=== PATIENT | female | born 1975 | race Hispanic/Latino ===

== ENCOUNTER → 2018-09-01 | Day surgery (SDC) | payer OTHER ==
[~2018-09-01] MED LIST: ACETAMINOPHEN 1000 MG/100 ML IV ONE; ACETAMINOPHEN325 M1 PO; CEFAZOLIN SOD 1 GM/NS 50ML 50 ML IV ONE; DEXAMETHASONE SOD PHOS INJ 4 MG/ML VIAL ONE; EPINEPHRINE HCL 1:1000 1ML 1 MG/ML AMP ONE; FENTANYL CITRATE/PF 100MCG/2 ML INJ ONE; HYDROCODONE/APAP 7.5MG-325MG 1 EA TAB ONE; LEVOTHYROXINE50 MCG PO; LIDOCAINE HCL 2% LOCAL INJ 5 ML SDV VIAL INJ ONE; MIDAZOLAM HCL 2 MG/2 ML VIAL ONE; MUPIROCIN 2% OINT 22 GM TUBE ONE; NAPROXEN250 MG PO; ONDANSETRON HCL INJ 2MG/ML 2ML 2 MG/ML VIAL ONE; PROPOFOL IV EMULSION 10 MG/ML 20 ML VIAL ONE; ROCURONIUM BROMIDE 10 MG/ML 5ML VIAL ONE; ROPIVACAINE 0.5% 5 MG/ML 30 ML SDV ONE; SEVOFLURANE INHAL SOLN 250 ML PEN BTL ONE; ULTRAM50 MG PO
--- OUTSIDE RECORDS SUMMARY | 2018-09-01 06:32 | XMS REPORT ---
Author Author [facility] Address Unknown Phone Unavailable Care Team Providers Care Control Supervisor Name Role Phone Unavailable Unavailable Payers Payer Name Policy Type Policy Number Effective Date Expiration Date Problems This patient has no known problems. Allergies, Adverse Reactions, Alerts Allergy Name Allergy Type Status Severity Reaction(s) Onset Date Inactive Date Treating Clinician Comments No Known Allergies DA Active U 2017-06-16 00:00:00 Medications This patient has no known medications. Results Test Description Test Time Test Comments Text Results Atomic Results Result Comments - MRI UP JNT W/O CONT RT 2018-08-13 08:37:00 FAX: Seun Lugo MD [phone] [place]: St: [facility] FAX: Federico Blanco MD [phone] Name: COURTNEYJAYY [facility] : 1975 Age/S: 42/F [place] [address] Unit #: [id number] Loc: [place] [address] Phys: Seun Jacques MD Acct: [id number] Dis Date: Status: KAREN CLI PHONE #: [phone] Exam Date: 08/12/2018 1413 FAX #: [phone] Reason: PAIN EXAMS: CPT CODE: [id number] MRI UP JNT W/[place] [id number] HISTORY: Shoulder pain. COMPARISON: X-ray from primary 2018. MRI right shoulder without contrast: Large partial thickness full width tear of the supraspinatus tendon proximal to the leading edge of the supraspinatus tendon. Moderate thickening and tendinosis as well. No tendon retraction. Mild impingement from AC joint hypertrophy with small undersurface osteophytes. No muscle atrophy. Intact bicipital tendon and biceps anchor. No dislocation. Intact infraspinatus tendon and subscapularis tendon. No bone bruise or acute fracture or osteochondral lesions. Articular cartilage is preserved. No significant joint fluid. The labrum is intact without tear. The glenohumeral ligaments remain intact. The humeral attachment is intact. No bursitis or bursal fluid collection. Acromion is type I in configuration and is not downsloping. Rotator interval is unremarkable. No adhesive capsulitis is noted. IMPRESSION: Large partial thickness full width tear of the supraspinatus tendon proximal to the leading edge. Marked tendinosis and thickening of the supraspinatus tendon as well without tendon retraction or muscle atrophy. Rest of the rotator cuff is intact. Intact labrum and glenohumeral ligaments. No adhesive capsulitis. Mild AC joint hypertrophy with mild impingement of supraspinatus tendon. at 0837 Reported and signed by: Nick Lester M.D. CC: Seun Jacques MD; Federico Villatoro MD Technologist: RT GARY - [facility] Date/Time/By: 08/13/2018 (0837) : By: [email or web address] Orig Print D/T: S: 08/13/2018 (0840) PAGE 1 Signed Report - XR SHOULDER 2 + V RT 2018-08-07 10:34:00 FAX: Seun Lugo MD [phone] [place]: O St: REG FAX: Federico Blanco MD [phone] Name: JAYY VALDEZ [facility] : 1975 Age/S: 42/F [address] [facility] Unit #: [id number] Loc: [facility] [place] [address] Phys: Seun Jacques MD Acct: [id number] Dis Date: Status: REG RCR PHONE #: [phone] Exam Date: 08/07/2018 1031 FAX #: [phone] Reason: PAIN EXAMS: CPT CODE: [id number] XR SHOULDER 2 + V RT [id number] HISTORY: Pain. COMPARISON: None available. 3 VIEWS OF THE RIGHT ELBOW: No acute fracture or dislocation. Elbow joint is preserved. Coronoid enthesophyte. No joint fluid. Mineralization is normal. Soft tissues are normal. IMPRESSION: No acute fracture or dislocation or joint fluid. Small coronoid process enthesophyte. 3 VIEWS OF THE RIGHT SHOULDER: No acute fracture or dislocation. Joint spaces are preserved. Scapula and glenoid are normal. Visualized lungs are clear. Soft tissues and mineralization are normal. IMPRESSION: No acute fracture or dislocation. Joint spaces are preserved. at 1034 Reported and signed by: Nick Lester M.D. CC: Seun Jacques MD; Federico Villatoro MD Technologist: RT Freddy(R) Trnscrd Date/Time/By: 08/07/2018 (1034) : By: [email or web address] Orig Print D/T: S: 08/07/2018 (1037) PAGE 1 Signed Report - XR ELBOW 3 + V RT 2018-08-07 10:34:00 FAX: Seun Lugo MD [phone] [place]: O St: REG FAX: Federico Blanco MD [phone] Name: JAYY VALDEZ [facility] : 1975 Age/S: 42/F [address] Unit #: [id number] Loc: [facility] [place] [address] Phys: Seun Jacques MD Acct: [id number] Dis Date: Status: REG RCR PHONE #: [phone] Exam Date: 08/07/2018 1031 FAX #: [phone] Reason: PAIN EXAMS: CPT CODE: [id number] XR ELBOW 3 + V [place] [id number] HISTORY: Pain. COMPARISON: None available. 3 VIEWS OF THE RIGHT ELBOW: No acute fracture or dislocation. Elbow joint is preserved. Coronoid enthesophyte. No joint fluid. Mineralization is normal. Soft tissues are normal. IMPRESSION: No acute fracture or dislocation or joint fluid. Small coronoid process enthesophyte. 3 VIEWS OF THE RIGHT SHOULDER: No acute fracture or dislocation. Joint spaces are preserved. Scapula and glenoid are normal. Visualized lungs are clear. Soft tissues and mineralization are normal.
[2018-09-01 11:30] VITALS: BP 152/86
--- NOTE | 2018-09-04 15:20 | Operative Report ---
DATE OF PROCEDURE: 09/01/2018 SURGEON: Evelio Jackson MD INDUSTRIAL PSYCHOLOGY TEACHER: Chente Ford PA-C. PREOPERATIVE DIAGNOSIS: Rotator cuff tear, right shoulder. POSTOPERATIVE DIAGNOSIS: Rotator cuff tear, right shoulder. PROCEDURE: Right shoulder arthroscopy, subacromial decompression, rotator cuff repair. INDICATIONS: The patient is a 42-year-old lady, who has a traumatic rotator cuff tear in her right shoulder. This is associated with pseudoparalysis. The findings and options have been discussed with the patient. She would like to proceed with definitive surgical repair. The risks and benefits were explained. She stated she understood and wished to proceed. DESCRIPTION OF PROCEDURE: The patient was brought to the operating room and placed under general anesthetic. She received a regional block and prophylactic antibiotics in the holding area. She was positioned in the beach chair position on the shoulder table. Her right upper extremity was prepped and draped in a sterile manner. A preoperative time-out was performed. A standard posterior arthroscopy portal was established. The shoulder was insufflated with sterile saline and systematically inspected. The intra-articular space of the right shoulder joint was surprisingly pristine. The glenohumeral surfaces were well preserved. The labrum was normal. The biceps tendon was normal. The biceps tendon anchor at the supraglenoid tubercle appeared normal. The articular surface of the rotator cuff was unremarkable. The scope was then placed into the subacromial space. Extensive subacromial bursitis was encountered. A lateral working portal was established and a 5.5 mm electroblade shaver was introduced into the shoulder joint. A subacromial bursectomy was necessary for appropriate visualization. Hemostasis was obtained with the electroblade. A gentle subacromial decompression was performed. The rotator cuff was then inspected. There was a 1 cm [id number] tear of the anterior margin of the supraspinatus. This was probed. Again, it was near full thickness. The greater tuberosity was then gently decorticated where the tear had occurred. Two FiberTape stitches were then passed through the tendon using an Arthrex Scorpion suture passer. These were then used to securely reapproximate the tendon down to bleeding cancellous bone with a secondary bioabsorbable suture anchor placed in the superior lateral proximal humerus. The tendon was reprobed and noted to be under good tension and with secure approximation to the greater tuberosity. The arthroscopic instruments were then removed. The portal incisions were closed with nylon stitches. A sterile bandage and an UltraSling were applied. She was extubated and transported to the recovery room in stable condition. There was no blood loss and all needle and sponge counts were correct. Evelio Jackson MD DR/LAUREN /[id number]
== END | disposition home or self-care (01) ==
LOC: OR 06:30
PROVIDERS: ATTEND Specialist
DX: S46.021A Laceration of muscle(s) and tendon(s) of the rotator cuff of right shoulder, initial encounter (principal); S46.011A Strain of muscle(s) and tendon(s) of the rotator cuff of right shoulder, initial encounter; R29.818 Other symptoms and signs involving the nervous system; X50.0XXA Overexertion from strenuous movement or load, initial encounter; Y92.512 Supermarket, store or market as the place of occurrence of the external cause; J44.9 Chronic obstructive pulmonary disease, unspecified
CPT/HCPCS: 81025; C1713; J0171; J0690; J1100; J2001; J2250; J2405; J2795

== ENCOUNTER → 2018-10-28 | Outpatient (RCR) | payer OTHER ==
[~2018-10-28] MED LIST changes: -ACETAMINOPHEN 1000 MG/100 ML IV ONE; -CEFAZOLIN SOD 1 GM/NS 50ML 50 ML IV ONE; -DEXAMETHASONE SOD PHOS INJ 4 MG/ML VIAL ONE; -EPINEPHRINE HCL 1:1000 1ML 1 MG/ML AMP ONE; -FENTANYL CITRATE/PF 100MCG/2 ML INJ ONE; -HYDROCODONE/APAP 7.5MG-325MG 1 EA TAB ONE; -LIDOCAINE HCL 2% LOCAL INJ 5 ML SDV VIAL INJ ONE; -MIDAZOLAM HCL 2 MG/2 ML VIAL ONE; -MUPIROCIN 2% OINT 22 GM TUBE ONE; -ONDANSETRON HCL INJ 2MG/ML 2ML 2 MG/ML VIAL ONE; -PROPOFOL IV EMULSION 10 MG/ML 20 ML VIAL ONE; -ROCURONIUM BROMIDE 10 MG/ML 5ML VIAL ONE; -ROPIVACAINE 0.5% 5 MG/ML 30 ML SDV ONE; -SEVOFLURANE INHAL SOLN 250 ML PEN BTL ONE
== END ==
LOC: PT 10-23 14:36
PROVIDERS: ATTEND Specialist
DX: S46.021D Laceration of muscle(s) and tendon(s) of the rotator cuff of right shoulder, subsequent encounter (principal); Z47.89 Encounter for other orthopedic aftercare

== ENCOUNTER → 2018-11-28 | Outpatient (RCR) | payer OTHER | LOC: PT 10-30 09:58 | PROVIDERS: ATTEND Specialist | DX: S46.021D Laceration of muscle(s) and tendon(s) of the rotator cuff of right shoulder, subsequent encounter (principal); Z47.89 Encounter for other orthopedic aftercare ==

== ENCOUNTER 2018-12-25 10:00 | Outpatient (RCR) | payer OTHER | END 2018-12-28 | LOC: PT 10:00 | PROVIDERS: ATTEND Specialist | DX: S46.021D Laceration of muscle(s) and tendon(s) of the rotator cuff of right shoulder, subsequent encounter (principal); Z47.89 Encounter for other orthopedic aftercare ==

== ENCOUNTER 2019-02-20 09:52 | Outpatient (RCR) | payer OTHER | END 2019-02-28 | LOC: PT 09:52 | PROVIDERS: ATTEND Specialist | DX: S46.021D Laceration of muscle(s) and tendon(s) of the rotator cuff of right shoulder, subsequent encounter (principal); Z47.89 Encounter for other orthopedic aftercare ==

== ENCOUNTER 2019-04-28 10:58 | Outpatient (RCR) | payer OTHER | END 2019-04-30 | LOC: PT 10:58 | PROVIDERS: ATTEND Specialist | DX: S46.021D Laceration of muscle(s) and tendon(s) of the rotator cuff of right shoulder, subsequent encounter (principal); Z47.89 Encounter for other orthopedic aftercare ==

== ENCOUNTER 2019-05-05 10:57 | Outpatient (RCR) | payer OTHER | END 2019-05-30 | LOC: PT 10:57 | PROVIDERS: ATTEND Specialist | DX: S46.021D Laceration of muscle(s) and tendon(s) of the rotator cuff of right shoulder, subsequent encounter (principal); Z47.89 Encounter for other orthopedic aftercare; M62.81 Muscle weakness (generalized); M25.511 Pain in right shoulder; M25.611 Stiffness of right shoulder, not elsewhere classified ==